=== PATIENT | male | born 1980 | race Two or more races ===

== ENCOUNTER 2016-04-11 14:24 | Emergency (ER) | payer OTHER ==
[~2016-04-11] VITALS: Ht 167.6 cm; Wt 81.6 kg
[2016-04-11 14:45] VITALS: BP 127/84
[2016-04-11] MEDS ORDERED: TdaP Vaccine 0.5ml Syr IM ONE (15:00)
[2016-04-11] MEDS ORDERED: Bacitracin Oint UD TOPIC ONE (15:30)
[2016-04-11] MEDS ORDERED: IBUPROFEN600 MG ORAL (15:33)
[2016-04-11] MEDS ORDERED: BACITRACIN1 APPLIC TOPIC (15:33)
[2016-04-11 15:43] VITALS: BP 127/84
--- NOTE | 2016-04-11 22:50 | Emergency Room Report ---
History of Present Illness General Chief Complaint: Laceration Source: Patient Present Illness HPI The patient is a 36-year-old male presenting with head pain after the patient states that he hit himself in the head with a wrench at work. Pain is described as a 4/10 dull ache. Pain is nonradiating. Patient noticed bleeding to the area. Pt unsure of last tetanus shot. Pt denies loss of consciousness, dizziness, blurred vision, neck pain, CP, SOB, N, V Allergies: Coded Allergies: No Known Allergies (Unverified , 04/11/16) Patient History Past Medical History: see triage record Pertinent Family History: none Reviewed Nursing Documentation: PMH: Agreed, PSxH: Agreed Nursing Documentation-PMH Past Medical History: No Stated History Review of Systems All Other Systems: negative except mentioned in HPI Physical Exam Vital Signs Date Time Temp Pulse Resp B/P Pulse Ox O2 Delivery O2 Flow Rate FiO2 04/11/16 14:35 98.4 79 18 127/84 99 Room Air Sp02 EP Interpretation: reviewed, normal General Appearance: no apparent distress, alert, GCS 15, non-toxic Head: normocephalic, other - 2cm linear laceration to mid parietal region. Does not extend through dermis Eyes: bilateral eye PERRL, bilateral eye normal inspection ENT: hearing grossly normal, normal pharynx, no angioedema, normal voice Musculoskeletal: back normal, gait/station normal, normal range of motion, non- tender Neurologic: alert, oriented x3, responsive, motor strength/tone normal, sensory intact, speech normal Psychiatric: judgement/insight normal, memory normal, mood/affect normal, no suicidal/homicidal ideation Skin: normal color, no rash, warm/dry, well hydrated Lymphatic: no adenopathy Medical Decision Making PA Attestation Dr. Ward is my supervising physician. Patient management was discussed with my supervising physician Diagnostic Impression: Primary Impression: Scalp laceration Additional Impression: Scalp contusion ER Course The patient is a 36-year-old male presenting with head pain after the patient states that he hit himself in the head with a wrench at work. Ddx considered include but not limited to fracture, laceration, abrasion PE: vitals WNL. NAD Head is NC. There is a 2 cm linear laceration over the parietal region. Does not extend through dermis. Minimal bleeding. No depression. No crepitus Was examined unremarkable The patient is given tetanus vaccination The wound is cleaned with Betadine and bacitracin was applied. ER precautions were given and the patient will followup with workers compensation Last Vital Signs Date Time Temp Pulse Resp B/P Pulse Ox O2 Delivery O2 Flow Rate FiO2 04/11/16 15:43 98.4 18 127/84 99 Room Air 04/11/16 14:35 79 Status: improved Disposition: HOME, SELF-CARE Condition: Improved Scripts Ibuprofen* (MOTRIN*) 600 Mg Tablet 600 MG ORAL Q8H Y for For Pain, #30 TAB 0 Refills Prov: AYAKA JC 04/11/16 Bacitracin (Bacitracin Zinc) 15 Gm Oint...g. 1 APPLIC TOPIC TID, #15 GM Prov: AYAKA JC 04/11/16 Referrals: NOT CHOSEN IPA/MD,REFERRING (PCP) Patient Instructions: Nonsutured Laceration Care Additional Instructions: I discussed my findings with the patient. All questions and concerns have been answered. Treatment and medication compliance have been addressed. I advised the patient that they need to follow up with PMD in 3-5 days. Return to ED if symptoms worsen, new symptoms arise, or if needed for any reason. Patient verbalized understanding of discharge instructions. Please follow up with workers compensation as soon as possible AYAKA JC Apr 11, 2016 22:50
== END 2016-04-11 15:44 | disposition home or self-care (01) ==
LOC: EMR 15:42
DX: S01.01XA Laceration without foreign body of scalp, initial encounter (principal); S00.03XA Contusion of scalp, initial encounter; W22.8XXA Striking against or struck by other objects, initial encounter; Y93.9 Activity, unspecified; Y99.0 Civilian activity done for income or pay; Z23 Encounter for immunization
CPT/HCPCS: 90471; 90715; 99284